=== PATIENT | female | born 1955 | race Caucasian/White ===

== ENCOUNTER 2021-06-11 06:31 | Day surgery (SDC) | payer BC, OTHER ==
[2021-06-07 09:53] LABS: Absolute Lymphocytes (CBC) 2.4 K/uL (0.7-4.9); Hematocrit 38.5 % (36.0-45.0); Lymphocytes % 28.6 % (15.3-44.8); MPV 7.8 fL (7.6-11.3); RBC Red Blood Cell Count 4.21 M/uL (3.86-4.86)
[2021-06-07 09:54] LABS: Potassium 4.6 mmol/L (3.5-5.1)
[2021-06-07 09:56] LABS: Protime INR 0.97
--- NOTE | 2021-06-07 10:10 | RAD REPORT ---
EXAM DESCRIPTION: RAD - Chest Pa And Lat (2 Views) - 06/07/2021 9:46 am CLINICAL HISTORY: Pre op pending rotator cuff surgery COMPARISON: Two view chest 12/18/2014 TECHNIQUE: Frontal and lateral views of the chest were obtained. FINDINGS: The lungs are clear. Interstitial pattern matches comparison. Heart size is normal and ce ntral vasculature is within normal limits. No pleural effusion or pneumothorax seen. No acute bony finding noted. No aortic abnormality. IMPRESSION: No acute cardiopulmonary process.
[2021-06-11] MEDS ORDERED: SODIUM BICARB 50 MEQ/50ML VIAL ONE (06:49)
[2021-06-11] MEDS ORDERED: ROPLVACAINE HCL 40 ML ONE (06:49)
[2021-06-11] MEDS ORDERED: MIDAZOLAM HCL 2 MG/2 ML INJ ONE ×2 (06:49→06:50)
[2021-06-11] MEDS ORDERED: LIDOCAINE 1% MPF 5 ML VIAL ONE (06:49)
[2021-06-11] MEDS ORDERED: FENTANYL CITR 100 MCG/2 ML ONE ×3 (06:49→07:43)
[2021-06-11] MEDS ORDERED: dexAMETHasone 10 MG/ML VIAL ONE ×2 (06:49→08:48)
[2021-06-11] MEDS ORDERED: LIDOCAINE 2% MPF 5 ML VIAL ONE ×2 (06:50→07:43)
[2021-06-11] MEDS ORDERED: propofoL 200 MG/20 ML VIAL IV ONE ×4 (06:50→10:59)
[2021-06-11] MEDS ORDERED: CEFAZOLIN/SWI 2gm 2 GM/20 ML SYR ONE (06:54)
[2021-06-11] MEDS ORDERED: Ringers Lactate 1,000 ML IV ONE (06:54)
[2021-06-11] MEDS ORDERED: EPINEPHRINE/PF 1 MG/ML AMP ONE (07:10)
[2021-06-11] MEDS ORDERED: ROCURONIUM 50 MG/5 ML VIAL IV ONE (07:46)
[2021-06-11] MEDS ORDERED: ONDANSETRON 4 MG/2 ML VIAL ONE ×3 (07:47→10:43)
[2021-06-11] MEDS ORDERED: EPHEDRINE SULF 50 MG/ML VIAL ONE (08:43)
[2021-06-11] MEDS ORDERED: KETOROLAC 30 MG/ML INJ ONE (09:54)
--- NOTE | 2021-06-11 10:03 | P.BOP ---
Preoperative diagnosis: right shoulder rotator cuff tear bicipital tendinitis, impingement syndrome Postoperative diagnosis: same, right shoulder SLAP tear Primary procedure: right shoulder arthroscopic rotator cuff repair Secondary procedure: right shoulder arthroscopic biceps tenotomy with SLAP debridement Other procedure(s): right shoulder arthroscopic subacromial decompression Gauge Controller: NONE,NONE Estimated blood loss: 5 cc Specimen: none Findings: see dictation Anesthesia: General Complications: None Implants: 1- 4.75 mm Arthrex swivelock Fluids & blood products: per anesthesia record Transferred to: Recovery Room Condition: Good
[2021-06-11] MEDS ORDERED: PROMETHAZINE INJ 25 MG/ML AMP ONE (10:58)
--- NOTE | 2021-06-11 11:04 | RAD REPORT ---
EXAM DESCRIPTION: RAD - Shoulder 1 View - 06/11/2021 10:45 am CLINICAL HISTORY: S/P R RCR, SAD, BICEP TENOTOMY COMPARISON: No comparisons FINDINGS: Single AP projection of the right shoulder is submitted. No fracture or dislocation seen. No unexpected immediate postoperative finding.
[2021-06-11] MEDS: PROMETHAZINE INJ 25 MG/ML AMP ONE ×2 (11:14→11:19)
[2021-06-11 14:13] VITALS: BP 144/68; TEMP 97; O2SAT 99
--- NOTE | 2021-06-12 01:19 | OP ---
Date of Procedure: 06/11/2021 Surgeon: Sohan Carcamo MD Preoperative Diagnoses: 1.Right shoulder rotator cuff tear. 2.Right shoulder bicipital tenosynovitis. 3.Right shoulder impingement syndrome. Postoperative Diagnoses: 1.Right shoulder rotator cuff tear. 2.Right shoulder bicipital tenosynovitis. 3.Right shoulder impingement syndrome. 4.Right shoulder SLAP tear. Procedures Performed: 1.Right shoulder arthroscopic rotator cuff repair. 2.Right shoulder arthroscopic SLAP tear debridement with biceps tenotomy. 3.Right shoulder arthroscopic subacromial decompression. Anesthesia: General endotracheal. Fluids: Per Anesthesia's record. Ebl: 5 cc. Complications: None. Implant: One 4.75 mm Arthrex SwiveLock. Indication For Procedure: Irene is a 66-year-old female who presented to my clinic with signs, sym ptoms, and MRI findings consistent with supraspinatus tear as well as bicipital tenosynovitis. The p atient had sustained an injury and had significant pain and weakness that affected her activities of daily living. I discussed with the patient and her family at length risks and benefits associated wi th operative and nonoperative treatment. They expressed understanding and elected to proceed operati ve treatment. Description Of Procedure: After informed consent was obtained, the patient was identified in the pre operative holding area. The right upper extremity was marked. The patient was then brought back to the PACU where she underwent an interscalene block to the right upper extremity, performed by the [facility] sthesia Team. The patient was then taken back to the operating room, transferred to the operative ta ble in supine fashion, placed under general endotracheal anesthesia. She was then placed in the beac h chair position with extremities well-padded. Right upper extremity was then prepped and draped in usual sterile fashion. A time-out was initiated. The correct patient and procedure were confirmed a nd identified. The patient did receive her preoperative prophylactic antibiotics. A spinal needle w as introduced in the glenohumeral joint via the posterior portal position. The shoulder joint was in jected with 30 cc of normal saline to distend the capsule. An 11 blade was used to then create a pos terior portal. The arthroscope was brought via the posterior portal position under direct visualizat ion. A spinal needle was used to create an anterior portal and cannula was placed. Diagnostic arthr oscopy was performed. The patient was noted to have intact and stable anterior and posterior labrum. The superior labrum was noted to be frayed and a type 2 SLAP tear was identified. A meniscal biter was then used to perform a biceps tenotomy without complication. There were no loose bodies found w ithin the axillary pouch. The subscapularis was found to be intact to probe. There was fraying in t he anterior aspect of the undersurface of the supraspinatus. Arthroscopic shaver was then used to de bride the undersurface of the supraspinatus tear. A lateral stab incision was made to create a later al portal. Obturator was then brought into the shoulder joint consistent with a full-thickness rotat or cuff tear. An arthroscopic shaver was then used to debride the undersurface of the supraspinatus tear as well as the greater tuberosity to create a bleeding bony bed. The arthroscope was then broug ht into the subacromial space and a subacromial bursectomy was performed. Radiofrequency ablator was then used to debride the undersurface of the acromion. The rotator cuff tear was identified on the bursal side. It was debrided on the bursal side and the tear was relatively small and amenable to Sp eedFix fixation. A suture tip was then passed in an inverted horizontal mattress type fashion in the rotator cuff tear anterior to posterior fashion and this was brought over, tacked down to the greate r tuberosity using a 4.75 mm SwiveLock. There was good overall reduction of the rotator cuff tear on to the greater tuberosity. The remaining suture limbs were then cut. Undersurface of the acromion w as then debrided using a radiofrequency ablator and acromioplasty was performed using an arthroscopic bur as there was significant fraying of the coracoacromial ligament. Arthroscopic instruments were then removed without complication. Wounds were then irrigated thoroughly with normal saline and subc utaneous tissues were approximated using 2-0 Vicryl and skin was approximated using a 4-0 Monocryl. Sterile dressings were applied. The patient was placed in a shoulder immobilizer, awakened, and zee sferred back in stable condition. Postoperative Plan: The patient will begin physical therapy per medium rotator cuff repair protocol 4 weeks postop. CV/MODL Voice ID: [id number] Report ID: [id number]
== END 2021-06-11 13:40 | disposition home or self-care (01) ==
LOC: OR 06:31
PROVIDERS: ATTEND Orthopaedic Surgery Sports Medicine
PROC: 0RNJ4ZZ Release Right Shoulder Joint, Percutaneous Endoscopic Approach (ICD-10-PCS; 2021-06-11)
PROC: 0RBJ4ZZ Excision of Right Shoulder Joint, Percutaneous Endoscopic Approach (ICD-10-PCS; 2021-06-11)
PROC: 0LM14ZZ Reattachment of Right Shoulder Tendon, Percutaneous Endoscopic Approach (ICD-10-PCS; 2021-06-11)
PROC: 0LQ14ZZ Repair Right Shoulder Tendon, Percutaneous Endoscopic Approach (ICD-10-PCS; principal; 2021-06-11 08:00)
DX: S46.011A Strain of muscle(s) and tendon(s) of the rotator cuff of right shoulder, initial encounter (principal); M25.511 Pain in right shoulder; M75.21 Bicipital tendinitis, right shoulder; M75.41 Impingement syndrome of right shoulder; E03.9 Hypothyroidism, unspecified; I10 Essential (primary) hypertension; K58.9 Irritable bowel syndrome, unspecified; Z20.822 Contact with and (suspected) exposure to COVID-19
CPT/HCPCS: 29827; 29826; 29822; 29807; 93005; 85025; 80048; 36415; 85610; 85730; 71046; 73020; U0002; J2704 ×2; J0171; J2550; J2250 ×2; J3010; J1100 ×2; J2795; J0690; J7120; J2405 ×3